=== PATIENT | female | born 1950 | race Caucasian/White ===

== ENCOUNTER → 2016-11-01 | Day surgery (SDC) | payer OTHER ==
[~2016-11-01] MED LIST: CELECOXIB200 MG PO; CVS GLUCOSAMIN1 EACH PO; CYCLOBENZAPRINE5 MG PO; FETZIMA40 MG PO; HUMIRA20 MG/0.4 IM; HYDROCHLOROTHIA25 MG PO; MULTI VITAMIN1 EACH PO; NEURONTIN PO; OMEPRAZOLE20 M2 PO; OTEZLA30 MG PO; OXYCODON HCL-1 UDTA1 PO; PLAQUENIL200 MG PO; SERTRALINE HCL100 M1 PO; VALSARTAN160 MG PO; XANAX0.5 MG PO
--- NOTE | ~2016-11-01 | OR ---
Unit #: [id number] #: [id number] Patient: SANAM ALCANTAR [id number] [address] [place], [place] [address] [id number] O MR#: [id number] NAME: SANAM ALCANTAR ROOM: Date of Procedure: 11/01/2016 Admission Date: 11/01/2016 Surgeon: Koby Yusuf M.D. : 1950 Attending Physician: Teja Yusuf Primary Care Physician: Gi Hilton M.D. [facility]ENTER OPERATIVE NOTE PROCEDURE PERFORMED Lumbar epidural steroid injection under x-ray guided needle placement with provider administered conscious sedation. PREOPERATIVE DIAGNOSES 1. Acute lumbar radiculitis. 2. Spinal stenosis, lumbosacral spine. 3. Degenerative joint disease, lumbosacral spine. 4. Degenerative disk disease, lumbosacral spine. INDICATIONS FOR PROCEDURE The patient presents today with a longstanding history of chronic lumbar radicular pain secondary to her underlying degenerative processes. She is generally fairly well managed medically with ongoing continuous conservative therapy. She does however experience exacerbations, which to date have only responded to epidural steroid injections. She is approximately 12 to 14 weeks out from her last epidural steroid injection which provided her 6 to 10 weeks of 60% to 80% pain control. Over the course of past 2 to 4 weeks, she has experienced in advancing pain with a crescendo pattern which has failed to respond to her usual conservative therapy and has broken through that treatment to the point that she is now experiencing interference with her activities of daily living. After discussing risks and benefits of proceeding today with a lumbar approach epidural steroid injection utilizing the dual needle access technique, as the patient states that was the most effective previous treatment, the patient agreed this would be the appropriate course of action. DESCRIPTION OF PROCEDURE She was then taken to the operating room, where she was prepped and draped in a sterile manner. Standard monitors were applied. She was sedated with 2 mg of IV Versed initially and required an additional 2 mg of IV Versed throughout the duration of procedure. Lumbar epidural space was accessed at the L5-S1 and L3-L4 levels using loss of resistance technique and x-ray guidance. Needle placement was confirmed with injection of 2 mL of Omnipaque at each site. There was good superior and inferior flow at both the L5-S1 and the L3-L4 level. Following successful needle placement confirmation which required an x-ray time of 18 seconds, the patient received an injectate containing 4 mL of normal saline and 40 mg of methylprednisolone at each location for a total injected volume of 8 mL of normal saline and 80 mg of methylprednisolone. She tolerated this procedure well. She was discharged home with followup instructions, which include an offer to return to this clinic as early as on 02/07/2017 if we could be of further service to her. She was instructed if she is Unit #: [id number] #: [id number] Patient: SANAM ALCANTAR asymptomatic at that time to simply not keep that appointment and to follow up with us and her referring and/or primary care provider should she have further need of our services. Dictated by... Brian Vee/wei TD: 11/02/2016 01:23 JOB #: [id number] [facility] OPERATIVE NOTE Page 1 of 1 X Teja Yusuf MD X PROCEDURE OPERATIVE NOTE
== END | disposition home or self-care (01) ==
LOC: CCSC 08:08
PROVIDERS: Anesthesiology
PROC: 3E0R33Z Introduction of Anti-inflammatory into Spinal Canal, Percutaneous Approach (ICD-10-PCS; principal; 2016-11-01 09:00)
DX: M51.17 Intervertebral disc disorders with radiculopathy, lumbosacral region (principal)
CPT/HCPCS: J1040; J2250

== ENCOUNTER → 2017-03-07 | Day surgery (SDC) | payer OTHER ==
--- NOTE | ~2017-03-07 | OR ---
Unit #: [id number] #: [id number] Patient: SANAM ALCANTAR [id number] [address] [place], [place] [address] [id number] O MR#: [id number] NAME: SANAM ALCANTAR ROOM: Date of Procedure: 03/07/2017 Admission Date: 03/07/2017 Surgeon: Koby Yusuf M.D. : 1950 Attending Physician: Koby Yusuf M.D. Primary Care Physician: Gi Hilton M.D. [facility]ENTER OPERATIVE NOTE PROCEDURE PERFORMED Lumbar epidural steroid injection under x-ray guided needle placement with provider administered conscious sedation. PREOPERATIVE DIAGNOSES 1. Acute lumbar radiculitis. 2. Spinal stenosis, lumbosacral spine. 3. Degenerative joint disease, lumbosacral spine. 4. Degenerative disk disease, lumbosacral spine. 5. Facet arthrosis, lumbosacral spine. 6. Facet arthralgia, lumbosacral spine. INDICATIONS FOR PROCEDURE The patient presents today with longstanding history of chronic lumbar radicular pain secondary to her underlying degenerative processes. She is generally fairly well managed medically with ongoing continuous conservative measures, but she does occasionally experience exacerbations, which to date have only responded to epidural steroid injections. Her usual amount of relief is 68% for 6 to 8 weeks. She does present today complaining of just such an exacerbation, left-sided greater than right as well as complaints compatible with facet arthralgia during her most recent period of relative comfort from her radicular pain. This was noted. After discussing risks and benefits of proceeding today with dual needle L3-4, L5-S1 epidural steroid injection as well as return to this clinic on 06/13/2017, the patient agreed this would be the appropriate course of action. We further discussed referral to [facility] for potential radiofrequency ablation and agreed this would be the appropriate course of action. DESCRIPTION OF PROCEDURE Following these discussions, the patient was taken to the operating room, where she was prepped and draped in sterile manner. Standard monitors were applied. She was sedated with 2 mg of IV Versed initially and required an additional 2 mg of IV Versed throughout the duration of procedure. Lumbar epidural space was accessed using loss of resistance technique and x-ray guidance at the L5-S1 and L3-4 levels. Total x-ray time for this dual needle placement was 13 seconds. Needle placement was confirmed at each level with the injection of 2 mL of Omnipaque. Both locations had good superior and inferior dye flow. Following successful needle placement confirmation, the patient received an injectate containing 4 mL of normal saline, 40 mg of methylprednisolone at each level for a total injectate volume of 8 mL of normal saline and 80 mg of methylprednisolone. She tolerated this procedure well. She was Unit #: [id number] #: [id number] Patient: SANAM ALCANTAR discharged home with followup instructions, which include return dates as described above. Dictated by... Brian eVe/wei TD: 03/08/2017 06:09 JOB #: [id number] CC: Deo Markham M.D. [facility]ENTER OPERATIVE NOTE Page 1 of 1 X Teja Yusuf MD X PROCEDURE OPERATIVE NOTE
== END | disposition home or self-care (01) ==
LOC: CCSC 09:04
DX: G89.29 Other chronic pain (principal); M51.17 Intervertebral disc disorders with radiculopathy, lumbosacral region; M47.27 Other spondylosis with radiculopathy, lumbosacral region; M48.07 Spinal stenosis, lumbosacral region; Z88.2 Allergy status to sulfonamides; Z79.891 Long term (current) use of opiate analgesic; Z79.899 Other long term (current) drug therapy; Z90.49 Acquired absence of other specified parts of digestive tract; Z96.652 Presence of left artificial knee joint; Z90.721 Acquired absence of ovaries, unilateral; Z98.890 Other specified postprocedural states
CPT/HCPCS: J1040; J2250